=== PATIENT | female | born 1980 | race Caucasian/White ===

== ENCOUNTER → 2018-08-16 | Outpatient (CLI) | payer BC ==
--- NOTE | 2018-08-20 14:08 | SLEEPCENT ---
DATE OF PROCEDURE: 08/16/2018 ORDERED BY: VIRGIL Rothman Nocturnal polysomnography was performed for the titration of pressure therapy in this patient with a clinical diagnosis of obstructive sleep apnea syndrome confirmed by home testing revealing respiratory event index of 5.3. For testing a [employer] full face mask was used; 4 cm of water pressure were applied to the circuit and the lights were extinguished. 7 hours and 56 minutes of data were reviewed. There were 389 minutes of sleep identified. Sleep latency was prolonged at 52.5 minutes. Rapid eye movement (REM) latency was prolonged at 243 minutes. Sleep architecture improved late in the study. Overall sleep efficiency of 83%. The patient's electrocardiogram showed a sinus rhythm with an average heart rate of 66 beats per minute. EEG showed normal waveforms for awake and sleep. Respiratory events were fully palliated with CPAP at a pressure +6. There was some limb activity early in the study, which improved significantly late in the test. The limb movement arousal index was 13.7. IMPRESSION: 1. Obstructive sleep apnea syndrome (G47.33). 2. Periodic limb movement disorder (G47.61). Limb movement arousal index 13.7. RECOMMENDATIONS: Nightly use of pressure therapy at 6 cm of water should be sufficient to address the patient's respiratory disruptive events. Should sleep symptoms persist, interventions to reduce the frequency arousal from limb activity may also be helpful.
== END ==
LOC: M SLEEP 19:31
PROVIDERS: ATTEND Physician Assistant
DX: G47.33 Obstructive sleep apnea (adult) (pediatric) (principal); G47.61 Periodic limb movement disorder

== ENCOUNTER → 2020-04-08 | Outpatient (CLI) | payer BC ==
--- NOTE | 2020-04-17 08:17 | SLEEPCENT ---
DATE: 04/08/2020 ORDERED BY: Dax Dale Nocturnal polysomnography was performed for the titration of pressure therapy in this patient with obstructive sleep apnea syndrome. For testing, A [employer] full-face mask of small size. There was 4 cm of water pressure applied to the circuit, and the lights were extinguished. There was 7 hours and 54 minutes of data reviewed. There was 342 minutes of sleep identified. Sleep latency was prolonged at 93 minutes. REM latency was short at 65 minutes. Sleep architecture was good with four REM cycles. Overall sleep efficiency was 73.5%. The electrocardiogram showed a sinus rhythm with an average heart rate of 60 beats per minute. Small complexes were noted. EEG showed normal waveforms for wake and sleep. Respiratory events were fully palliated with continuous positive airway pressure (CPAP) at a pressure of 7. Some limb activity was noted. Limb movement arousal index was 6.1. IMPRESSION: Obstructive sleep apnea syndrome (G47.33). RECOMMENDATION: Nightly use of pressure therapy 7 cm of water. MTDD
== END ==
LOC: M SLEEP 20:00
PROVIDERS: ATTEND Physician Assistant
DX: G47.33 Obstructive sleep apnea (adult) (pediatric) (principal)